=== PATIENT | female | born 1950 | race Caucasian/White ===

== ENCOUNTER 2021-08-28 13:57 | Emergency (ER) | payer MEDICARE, OTHER, SELFPAY ==
[2021-08-28] VITALS (10 sets, daily range): BP systolic 141–185; BP diastolic 71–104; PULSE 85–103; RESP 5–24; TEMP 37.1; O2SAT 96–100; BMI 25.4
--- NOTE | 2021-08-28 14:19 | PC.NURSE ---
patient had triple bypass in the past. She had a syncopal episode as she was being prepped for that procedure. Today she passed out twice after exertion going on a hike and climbing 60 steps.
--- NOTE | 2021-08-28 14:24 | ED.GENADULT ---
HPI - General Adult General Chief complaint: Syncope Stated complaint: Dizzy/sob/fainted this am Time Seen by Provider: 08/28/21 14:09 Source: patient Mode of arrival: Family Vehicle Limitations: no limitations History of Present Illness HPI narrative: Patient is a 70-year-old female. Has a history of high blood pressure. Also has a history of coronary artery disease. About 5 years ago had a bypass surgery. Was at her normal state health. Was hiking locally with her family. She states that they went down some stairs to a beach in as she was climbing back up the stairs she did have some shortness of breath. When she arrived to the top of the stairs she stated that she was having some anxiety. Was having shortness of breath. Was reported that she passed out. Bystanders states she turned mao and was not responsive. They later on the ground. Was unconscious for approximately 30 seconds. She seemed to regain consciousness. They tried to sit her up and the event happened again. He EMS was called. By the time EMS arrived patient states she had completely recovered. They checked her blood sugar was told that was unremarkable. She was able to walk back out to her car. Event occurred approximately 2 hours prior to arrival here in the ER. She has been asymptomatic since that time. No chest pain. No shortness of breath. No headache. No numbness and tingling in arms or legs. No nausea vomiting. Review of Systems Review of Systems ROS Unobtainable: All systems reviewed & are unremarkable except as noted in HPI and below Patient History Medical History Coronary artery disease Hypertension Social History (Updated 08/28/21 @ 14:30 by Pawel Mcbride DO) lives independently: Yes Exam Initial Vital Signs Initial Vital Signs: Vital Signs Temperature 98.8 F 08/28/21 14:10 Pulse Rate 103 H 08/28/21 14:10 Respiratory Rate 20 08/28/21 14:10 Blood Pressure 141/104 H 08/28/21 14:10 Pulse Oximetry 100 08/28/21 14:10 Const General: cooperative, healthy appearing, comfortable and well developed HENNC Head: normal to inspection and normocephalic Chest Chest: normal inspection of the chest Resp Effort & Inspection: normal respiratory effort Auscultation: clear to auscultation bilaterally Cardio Rate: regular rate Rhythm: regular rhythm Heart Sounds: no murmurs GI Inspection: normal to inspection Palpation: soft and tender Skin General: no rashes or lesions noted Neuro General: patient alert, patient awake, patient oriented x3 and moves all extremities Cognition: normal cognition Speech: speech normal Gait: normal gait Motor: muscle tone normal throughout Extrem General: normal to inspection, capillary refill normal and No edema Psych Appearance: grossly normal and well kempt Course Orders Ordered: ED Orders 08/28/21 14:10 EKG-12 Lead Stat 08/28/21 14:14 Complete Blood Count AUTO DIFF Stat Comprehensive Metabolic Panel Stat Lipase Stat Troponin & CK Cardiac Panel Stat Vital Signs Vital signs: Vital Signs - 8 hr 08/28/21 14:10 08/28/21 14:34 Temperature 98.8 F Pulse Rate 103 H 95 H Respiratory Rate 20 24 Blood Pressure 141/104 H Pulse Oximetry 100 98 Medical Decision Making Lab Data Lab results reviewed: Yes I reviewed the patient's lab results. Result diagrams: 08/28/21 14:14 08/28/21 14:14 Labs: Lab Results 08/28/21 08/28/21 Range/Units 14:14 14:14 WBC 12.1 H (4.5-11.0) X10^3/uL RBC 4.53 (4.0-5.2) X10^6/uL Hgb 12.6 (12.0-16.0) g/dL Hct 36.5 (36-46) % MCV 80.6 (80-100) fL MCH 27.8 (26-34) PG MCHC 34.5 (30-36) % RDW 14.2 (11.6-14.8) % Plt Count 209 (150-400) X10^3/uL Neut % (Auto) 91.1 H (50-75) % Lymph % (Auto) 4.1 L (25-40) % [place] % (Auto) 4.3 (3-14) % Eos % (Auto) 0.4 L (2-4) % Baso % (Auto) 0.1 (0-2) % Neut # (Auto) 32719 H (0556-3691) /uL Lymph # (Auto) 500 L (6801-1471) /uL [place] # (Auto) 500 (0-900) /uL Eos # (Auto) 100 (0-450) /uL Baso # (Auto) 0 (0-100) /uL Sodium 137 (137-145) mmol/L Potassium 3.7 (3.4-5.1) mmol/L Chloride 104 (98-107) mmol/L Carbon Dioxide 24 (22-32) mmol/L BUN 19 H (7-17) mg/dL Creatinine 0.85 (0.52-1.04) mg/dL Estimated GFR > 60.0 (>60) mL/min BUN/Creatinine Ratio 22.4 H (6-22) Glucose 131 H (80-110) mg/dL Calcium 9.7 (8.4-10.2) mg/dL Total Bilirubin 1.9 H (0.2-1.3) mg/dL AST 25 (14-36) IU/L ALT 13 (<35) IU/L Alkaline Phosphatase 100 (38-126) U/L Total Creatine Kinase 40 (30-135) U/L CK-MB (CK-2) TNP CK-MB (CK-2) Rel Index TNP Troponin I < 0.012 (0.01-0.034) ng/mL Total Protein 8.1 (6.3-8.2) g/dL Albumin 4.9 (3.5-5.0) g/dL Globulin 3.2 (1.7-4.1) g/dL Albumin/Globulin Ratio 1.5 (1.0-2.8) Lipase 39 (23-300) U/L ECG Data Attestation: I personally reviewed and interpreted this ECG as follows: Interpretation: Sinus rhythm Ventricular rate 92 Normal axis Normal QRS QTC [address] T wave changes MDM Narrative Medical decision making narrative: Patient has been asymptomatic since arrival here in the emergency department and actually asymptomatic since shortly after the event. She was able to walk to her car. She is alert oriented x3. Her EKG is relatively unremarkable. Has not had any ectopy since being here. Her symptoms are not consistent with stroke. Not consistent with seizure. Not consistent with TIA. Potentially had an arrhythmia however I have no specific indication of that now. I also have low suspicion for ACS. She did recently have a flight here to the local area but she has no lower extremity swelling. No chest pain. No shortness of breath. No feel that pulmonary embolism is unlikely. I suspect that what happened was that she became very winded walking up the stairs. She also states that she had some anxiety about walking up the stairs because of how many steps she had come up. Ossific that she became tachypneic and hyperventilated and syncopized because of this. I feel patient could be safely discharged home without further workup. Will have her contact her primary doctor in follow-up in she returns home. Discharge Plan Departure Patient Disposition: Home Clinical Impression: Syncope Instructions: DI for Syncope in Adults (Fainting) Activity Restrictions/Additional Instructions: Your workup here in the emergency department is very reassuring. I have low suspicion that this was a stroke or heart attack. Likely discuss this potentially could have been a irregular heart rhythm however I have no indication of that based on your monitoring here in the ER. I have a higher suspicion that because of the exertion that you are doing climbing the stairs that you hyperventilated which caused you to pass out. You have no restrictions on your activities. I do recommend that you continue all of your medications as directed. Contact your primary doctor when you return home. Return to the emergency department for any new or worsening symptoms.
[2021-08-28 14:57] LABS: Add Manual Diff / Slide Review NO; Basophils Absolute Auto 0 /uL (0-100); Basophils Percent Auto 0.1 % (0-2); Eosinophils Absolute Auto 100 /uL (0-450); Eosinophils Percent Auto 0.4 % (2-4); Hematocrit 36.5 % (36-46); Hemoglobin 12.6 g/dL (12.0-16.0); Lymphocytes Absolute Auto 500 /uL (1100-4500); Lymphocytes Percent Auto 4.1 % (25-40); Mean Corpuscular HGB Conc 34.5 % (30-36); Mean Corpuscular Hemoglobin 27.8 PG (26-34); Mean Corpuscular Volume 80.6 fL (80-100); Monocytes Absolute Auto 500 /uL (0-900); Monocytes Percent Auto 4.3 % (3-14); Neutrophils Absolute Auto 11000 /uL (1500-7000); Neutrophils Percent Auto 91.1 % (50-75); Platelet Count 209 X10^3/uL (150-400); Red Blood Cell Count 4.53 X10^6/uL (4.0-5.2); Red Cell Distribution Width 14.2 % (11.6-14.8); White Blood Cell Count 12.1 X10^3/uL (4.5-11.0)
[2021-08-28 15:02] LABS: Alanine Aminotransferase 13 IU/L (<35); Albumin 4.9 g/dL (3.5-5.0); Albumin Globulin Ratio 1.5 (1.0-2.8); Alkaline Phosphatase 100 U/L (38-126); Aspartate Aminotransferase 25 IU/L (14-36); BUN Creatinine Ratio 22.4 (6-22); Bilirubin Total 1.9 mg/dL (0.2-1.3); Blood Urea Nitrogen 19 mg/dL (7-17); Calcium 9.7 mg/dL (8.4-10.2); Carbon Dioxide 24 mmol/L (22-32); Chloride 104 mmol/L (98-107); Creatine Kinase 40 U/L (30-135); Estimated Glomerular Filt Rate > 60.0 mL/min (>60); Globulin 3.2 g/dL (1.7-4.1); Glucose 131 mg/dL (80-110); HEMOLYSIS < 15 (0-50); Lipase 39 U/L (23-300); Potassium 3.7 mmol/L (3.4-5.1); Sodium 137 mmol/L (137-145); Total Protein 8.1 g/dL (6.3-8.2)
[2021-08-28 15:13] LABS: Troponin I < 0.012 ng/mL (0.01-0.034)
== END 2021-08-28 16:07 | disposition home or self-care (01) ==
PROVIDERS: Emergency Provider Emergency Medicine
DX: R55 Syncope and collapse (principal); I10 Essential (primary) hypertension
CPT/HCPCS: 36415; 80053; 82550; 83690; 84484; 85025; 93005; 99283